=== PATIENT | female | born 1985 | race Caucasian/White ===

== ENCOUNTER 2018-01-18 05:17 | Day surgery (SDC) | payer OTHER ==
--- NOTE | 2018-01-16 17:20 | GHP ---
HISTORY OF PRESENT ILLNESS: Patient is extremely healthy, active 32-year-old female. Works on her f eet at [employer] on a regular basis. Is on her feet anywhere from 4 to 8 hours daily. Has develo ped pain in both great toe joints, progressive bunion deformity, offloading to the 2nd metatarsophala ngeal joint. She has significant pain within the joints themselves. She has tried inserts, change i n shoes, wider shoes, decreased activity, all of which have failed to alleviate her symptoms. At [facility], she wants a more permanent solution. She wanted surgical correction of both great toe joint s. PAST MEDICAL HISTORY: She has not had any significant medical problems in her past. PAST SURGICAL HISTORY: She has never had any surgeries. MEDICATIONS: Denies any prescription medications. ALLERGIES: Denies any drug allergies. SOCIAL HISTORY: She has never used any tobacco products. Alcohol use is less than 2 to 3 drinks per week. FAMILY HISTORY: She has no family history of unusual health issues. Positive family history of buni on deformity. PHYSICAL EXAMINATION: At her preop appointment, we discussed her condition. On physical exam at [facility], she had normal pulses, 2/4, dorsal pedal and posterior tibial arteries. Capillary fill less than 5 seconds to digits x10. Neurologic evaluation had sharp, dull, light touch, proprioception al l intact and symmetric to the digital level. She showed normal skin temperature, texture, and turgor with normal hair distribution to the digital level. Mild pinch callusing on the medial aspect of th e 1st metatarsal and great toes, consistent with a bunion deformity. Musculoskeletal evaluation show ed normal muscle mass and tone to the extrinsic as well as intrinsic muscles of both lower extremitie s. She has a general splayfoot deformity in the forefoot with a medially deviated 1st metatarsal, la terally deviated hallux bilateral. IMAGING: X-rays were taken. Showed elevated intermetatarsal hallux abductus angles. She does have some positional deformity on dorsal and plantar radiograph. ASSESSMENT: Hallux valgus deformity, bilateral. Metatarsus primus varus deformity, bilateral. PLAN: At this point, we discussed her condition in detail. I went over the procedure. Primary proc edure anticipated is a modified Giordano bunionectomy with osteotomy, screw fixation, and possible Jack n osteotomy with screw fixation. This is bilateral. We discussed risks and complications of the pro cedure, including residual pain, delayed healing. Patient understood. Consent form was signed. She was given both oral and written postop instructions along with a prescription for Percocet 10/325 an d Phenergan 12.5 mg to prevent nausea on the narcotics. All postoperative instructions were given to her preoperatively. All questions were answered at her preop appointment. I anticipate a rapid rec overy and she will be followed up 3 days postop at [facility]. She was given my personal cell phone number for 24-hour call should she have any problems or questions postoperativel y. /[id number]/MODL
[2018-01-18] MEDS ORDERED: LIDOCAINE 1% 2 ML INJ ID PRN (05:54)
[2018-01-18] MEDS ORDERED: LR 1,000 ML IV ONE (05:54)
[2018-01-18] MEDS ORDERED: MIDAZOLAM 2 MG/2 ML VIAL IVP ONE (06:35)
[2018-01-18] MEDS ORDERED: PROMETHAZINE HCL 25 MG/ML INJ IVP PRN (06:36)
[2018-01-18] MEDS ORDERED: NALOXONE HCL 0.4 MG/ML INJ IVP PRN (06:36)
[2018-01-18] MEDS ORDERED: ONDANSETRON 4 MG/2 ML VIAL IVP PRN (06:36)
[2018-01-18] MEDS ORDERED: oxyCODONE IR 5 MG TAB PO PRN (06:36)
[2018-01-18] MEDS ORDERED: fentaNYL 100 MCG/2 ML INJ IVP PRN (06:36)
[2018-01-18] MEDS ORDERED: PHENYLEPHRINE HCL 100 MCG/ML SYR IVP PRN (06:36)
[2018-01-18] MEDS ORDERED: METOCLOPRAMIDE 10 MG/2 ML VIAL IVP PRN (06:36)
[2018-01-18] MEDS ORDERED: HYDROmorphONE/DILAUDID 2 MG/ML INJ IVP PRN (06:36)
[2018-01-18] MEDS ORDERED: PROPOFOL/EMULSION 500 MG/50 ML BOTTLE IV ONE ×3 (06:41→08:19)
[2018-01-18] MEDS ORDERED: LIDOCAINE 2% 5 ML SDV ONE (06:41)
[2018-01-18] MEDS ORDERED: PROPOFOL 200 MG/20 ML VIAL ONE (06:41)
[2018-01-18] MEDS ORDERED: fentaNYL 100 MCG/2 ML INJ ONE (06:41)
[2018-01-18] MEDS ORDERED: ONDANSETRON 4 MG/2 ML VIAL ONE (06:41)
[2018-01-18] MEDS ORDERED: LIDO/EPI 1% **Not for Epidural 20 ML MDV ONE (06:55)
[2018-01-18] MEDS ORDERED: BUPIVACAINE 0.25% 10 ML SDV ONE (06:55)
[2018-01-18] MEDS ORDERED: ceFAZolin 1 GM/5 ML SYR ONE (06:56)
--- NOTE | 2018-01-18 07:01 | PDANEPAE ---
ANE Past Medical History - Cardiovascular History Hx Hypertension: No Hx Arrhythmias: No Hx Chest Pain: No Hx Coronary Artery / Peripheral Vascular Disease: No Hx CHF / Valvular Disease: No Hx Palpitations: No - Pulmonary History Hx COPD: No Hx Asthma/Reactive Airway Disease: No Hx Recent Upper Respiratory Infection: No Hx Oxygen in Use at Home: No Hx Sleep Apnea: No Sleep Apnea Screening Result - Last Documented: Negative - Neurologic History Hx Cerebrovascular Accident: No Hx Seizures: No Hx Dementia: No - Endocrine History Hx Diabetes: No - Renal History Hx Renal Disorders: No - Liver History Hx Hepatic Disorders: No - Neurological & Psychiatric Hx Hx Neurological and Psychiatric Disorders: No - Cancer History Hx Cancer: No - Congenital Disorder History Hx Congenital Disorders: No - GI History Hx Gastrointestinal Disorders: No - Other Health History Other Health History: none - Chronic Pain History Chronic Pain: No - Surgical History Prior Surgeries: n/a ANE Review of Systems Review of Systems: - Exercise capacity METS (RN): 4 METS ANE Patient History - Allergies Allergies/Adverse Reactions: No Known Allergies Allergy (Verified 01/15/18 12:28) - Home Medications Home Medications: MIRENA 01/15/18 [Last Taken Unknown] - NPO status NPO Since - Liquids (Date): 01/17/18 NPO Since - Liquids (Time): 20:00 NPO Since - Solids (Date): 01/17/18 NPO Since - Solids (Time): 19:00 - Smoking Hx Smoking Status: Never smoked - Family Anes Hx Family Hx Anesthesia Complications: none ANE Labs/Vital Signs - Vital Signs Blood Pressure: 110/70 Heart Rate: 82 Respiratory Rate: 18 O2 Sat (%): 97 Height: 157.48 cm Weight: 63.503 kg ANE Physical Exam - Airway Neck exam: FROM Mallampati Score: Class 2 Mouth exam: normal dental/mouth exam - Pulmonary Pulmonary: no respiratory distress, no rales or rhonchi, clear to auscultation - Cardiovascular Cardiovascular: regular rate and rhythym, no murmur, rub, or gallop - ASA Status ASA Status: I
[2018-01-18] MEDS ORDERED: ceFAZolin 2 GM/DEXTROSE 100 ML IV ONE (07:03)
--- NOTE | 2018-01-18 07:16 | PDHPUP ---
History & Physical Update H&P update statement: This history and physical update is based on an assessment of the patient which was completed after admission or registration (within 24 hours), but prior to the surgery/procedure. H&P update: H&P reviewed & patient examined (no changes), no change in patient' s condition since H&P completed
[2018-01-18] MEDS: LIDO/EPI 1% **Not for Epidural 20 ML MDV ONE ×2 (09:05→09:42)
--- NOTE | 2018-01-18 10:24 | POSTANESTH ---
Post Anesthetic Evaluation Cardiovascular Status: Normal, Stable Respiratory Status: Normal, Stable Level of Consciousness/Mental Status: Can Participate in Eval Pain Control: Adequate, Prn Tx Ordered Nausea/Vomiting Control: Adequate, Prn Tx Ordered Complications Possibly Related to Anesthesia: None Noted
[2018-01-18 11:27] VITALS: BP 111/72
--- NOTE | 2018-01-19 17:09 | GOP ---
DATE OF OPERATION: 01/18/2018 SURGEON: Jasper Inman DPM ANESTHESIA: IV MAC plus a local infiltration of approximately 20 cc of 1% lidocaine and 20 cc of 0.2 5% Marcaine. The lidocaine was with epinephrine and diluted with the Marcaine in a Sam-type block t o both great toes. PREOPERATIVE DIAGNOSIS: Hallux valgus deformity, bilateral. POSTOPERATIVE DIAGNOSIS: Hallux valgus deformity, bilateral. PROCEDURE PERFORMED: 1. Modified Giordano bunionectomy with osteotomy screw fixation. 2. Cristian osteotomy with screw fixation. Both of these were bilateral. FINDINGS: ESTIMATED BLOOD LOSS: Less than 10 cc. DESCRIPTION OF PROCEDURE: The patient was taken to the operating room, placed in a supine position. After a local Sam block and MAC anesthesia, both extremities were elevated, prepped, and draped in the usual sterile OR fashion, achieving a sterile field about the entire distal aspect of both extrem ities. At this point, attention was directed to the left foot. After elevation and exsanguination, tourniquet was inflated to 225 mmHg. Attention was directed to the medial aspect of the left great t oe joint where an approximately 3-inch linear incision was made medial to the 1st metatarsophalangeal joint. Dissection was carried down to the level of the joint capsule, taking care to preserve the n eurovascular status to the area. All superficial vessels were clamped and bovied as necessary. The 1st intermetatarsal space was entered via sharp and blunt dissection. The adductor tendon was identi fied and released from its attachments into the sesamoidal apparatus, as well as the base of the prox imal phalanx. Attention was then directed to the dorsal aspect of the joint capsule where a 2-3-inch linear incision was made just medial to the extensor hallucis longus tendon. This was reflected off the base of the proximal phalanx, as well as the metatarsal head. There was a small bony prominence on the medial aspect of the 1st metatarsal head, and this was removed utilizing a bone saw. A 0.027 K-wire was then placed through the metaphysis of the metatarsal neck, orienting the K-wire such that it would slightly plantar flex the metatarsal upon osteotomy. Utilizing this K-wire as an apex for the V, or chevron-type, osteotomy, the osteotomy was carried out with a slightly elongated dorsal win g. The metatarsal head was then shifted laterally, impacted upon itself, and held fast with the same 0.027 K-wire as temporary fixation. Utilizing AO technique, a single 2.4 mm fully-threaded OsteoMed screw was placed through the dorsal wing of the osteotomy and retrograded back into the metatarsal w ith excellent compression noted intraoperatively. Redundant bone was removed medially. The K-wire w as removed from the operative site, and the entire metatarsal head was rasped smooth utilizing a rota ry bur. The area was flushed copiously with dilute antibiotic solution. The great toe was taken thr ough a range of motion. It was deemed necessary to do a secondary osteotomy as the great toe was sti ll pushing on the 2nd toe slightly. At this point, attention was directed to the base of the proximal phalanx. A periosteal incision was made dorsally on the proximal phalanx and reflected medially and laterally, along with the medial as pect of the joint capsule. An oblique wedge osteotomy was carried out with the apex proximal lateral on the proximal phalanx. This small wedge of bone was removed from the operative site and closed ut ilizing a fracture reduction clamp. This swung the toe away from the 2nd toe. At this point, it bebe med to be anatomically aligned intraoperatively. For fixation, two parallel 2.4 mm fully-threaded Os teoMed screws were placed perpendicular to the osteotomy site with excellent compression noted intrao peratively. The fracture reduction clamp was removed from the toe. The great toe was taken through range of motion and deemed to be anatomically aligned. The medial margin of the joint looked very go od intraoperatively. There was minimal degeneration along the metatarsal head, only slight thinning of the cartilage on the proximal phalanx. The sesamoidal apparatus appeared to have adequate cartila ge and was deemed to be adequately aligned intraoperatively. This entire area was flushed copiously with dilute antibiotic solution. Redundant capsule was capsulotomized medially. Again, a secondary copious flush was then done. After this flush was done, the capsule was reapproximated utilizing 3-0 Vicryl in a simple interrupted and horizontal mattress suture. The periosteum was reapproximated on the proximal phalanx, as well as the distal 3rd of the metatarsal, utilizing 4-0 Vicryl in a simple interrupted suture. Subcu closure was carried out via 4-0 Vicryl in a horizontal mattress suture, an d skin closure was carried out via 4-0 Prolene in a running subcuticular stitch. The incision was re inforced with Mastisol and Steri-Strips. Sterile dressing, 4 x 4s, Curtis, and Coban were placed over the foot. The tourniquet was released, and all digits immediately returned to uniform pink color wi th normal capillary return less than 5 seconds to digits x10. At this point, attention was directed to the right foot. The foot was elevated, exsanguinated. Tour niquet was inflated to 225 mmHg. Attention was directed to the medial aspect of the great toe joint where, again, about a 3-inch linear incision was made along the metatarsophalangeal joint. Dissectio n was carried down to the level of the joint capsule, taking care to preserve the neurovascular statu s to the area. The 1st intermetatarsal space was entered via sharp and blunt dissection. The adduct or tendon was identified at its attachments into the base of the proximal phalanx. This was released sharply into the base of the proximal phalanx, as well as the sesamoidal apparatus. The great toe c ould then freely be moved into a corrected position by hand. At this point, the attention was direct ed over the dorsal aspect of the joint capsule where an approximately 2-3-inch linear incision was ma de medial to the extensor hallucis longus tendon. This was reflected medially and laterally, and the re was a small bony prominence on the medial aspect of the 1st metatarsal head. This was removed uti lizing the bone saw. At this point, a 0.027 K-wire was utilized and placed from medial to lateral wi th slight plantar flexion for the placement of the V osteotomy. This was done into the metaphysis of the metatarsal. Utilizing this K-wire as an apex for the V, or chevron, osteotomy, this osteotomy w as carried out with a slightly elongated dorsal wing. The metatarsal was shifted laterally and sligh tly plantarly, impacted upon itself, and held temporarily with the same 0.027 K-wire. Utilizing AO t echnique, a single 2.4 mm fully-threaded OsteoMed screw was placed through the dorsal wing of the ost eotomy with excellent compression noted dorsally. The K-wire was removed from the operative site. R edundant bone was removed medially, and the entire metatarsal head was rasped smooth utilizing a rota ry bur. The area was flushed copiously with dilute antibiotic solution. Intraoperatively, there was only some slight thinning of the cartilage on the metatarsal head, but no defects were noted intraop eratively on the metatarsal head, as well as the base of the proximal phalanx. The great toe was the n taken through a range of motion and it was deemed necessary to do a secondary osteotomy as the grea t toe was still pushing on the 2nd. The deformity of both feet was very similar both radiographicall y and clinically. At this point, attention was directed over the dorsal aspect of the proximal phalanx. After perioste al incision was made, this was reflected medially and laterally. An oblique wedge osteotomy was then carried out with the apex proximal lateral, and this was done on the proximal phalanx. This very th in wedge of bone was removed from the operative site. The great toe was swung away from the 2nd, and a fracture reduction clamp was utilized to close the osteotomy temporarily intraoperatively. Again, utilizing AO technique, 2 parallel 2.4 mm OsteoMed screws were placed perpendicular to the osteotomy site with excellent compression noted intraoperatively. The fracture reduction clamp was removed fr om the operative site. The great toe was taken through a range of motion and deemed to be anatomical ly aligned. The margin of the joint looked very good and the sesamoidal apparatus appeared to be jelani ing up correctly. There were minimal defects or wear and tear onto the cartilage of the sesamoidal a pparatus plantarly. The area was flushed copiously with dilute antibiotic solution. Redundant capsu le was removed medially. The capsule was then reapproximated after another flush. It was reapproxim ated utilizing 3-0 Vicryl in a simple interrupted suture. Periosteum was reapproximated utilizing 4- 0 Vicryl in a simple interrupted suture, and subcu closure was carried out via 4-0 Vicryl in a horizo ntal mattress suture. Skin closure was carried out via 4-0 Prolene in a running subcuticular stitch. The incision was reinforced with Mastisol and Steri-Strips. A sterile dressing, 4 x 4s, Curtis, and Coban were placed on the operative site with gentle compression. Tourniquet was released. All digi ts returned to a uniform pink color with normal capillary fill almost immediately. At this point, the patient was taken to the recovery room. All vital signs remained stable throughou t the entire procedure. There were no complications and no drains were placed in the operative site. Her prognosis is very good for rapid recovery, and she will be followed up x4 days postop at [facility]. She was given my personal cell number for 24-hour call should she have an y problems or questions postoperatively. TOURNIQUET: There were tourniquets utilized during the procedure. The tourniquet time on the left w as just over 70 minutes. The tourniquet time on the right was just over 60 minutes. COMPLICATIONS: None. DRAINS: None were placed in the operative site. /[id number]/MODL
== END 2018-01-18 11:34 | disposition home or self-care (01) ==
LOC: FSGY 05:17
PROVIDERS: ATTEND Podiatrist
DX: M21.611 Bunion of right foot (principal); M21.612 Bunion of left foot
CPT/HCPCS: C1713; J0690; J2250; J2405; J2704; J3010